=== PATIENT | female | born 1975 ===

== ENCOUNTER 2023-08-13 07:06 | Day surgery (SDC) | payer OTHER ==
[~2023-08-13] VITALS: Ht 167.6 cm; Wt 94.8 kg
[2023-08-13] MEDS ORDERED: fentaNYL citrate 0.05 MG/ML VIAL ONE (07:40)
[2023-08-13] MEDS: fentaNYL citrate 0.05 MG/ML VIAL IVP ONE (09:30)
[2023-08-13] MEDS: LIDOCAINE 2% 100 MG/5 ML UJET TP ONE (09:30)
== END 2023-08-13 10:34 | disposition home or self-care (01) ==
LOC: MDS 07:06 → MMU 07:07 → MDS 10:34
PROVIDERS: ATTEND Internal Medicine Gastroenterology
DX: K59.00 Constipation, unspecified (principal); I10 Essential (primary) hypertension; E78.00 Pure hypercholesterolemia, unspecified; E11.9 Type 2 diabetes mellitus without complications; Z98.51 Tubal ligation status; Z79.899 Other long term (current) drug therapy; Z98.890 Other specified postprocedural states
CPT/HCPCS: 45378; 82948; J3010